=== PATIENT | female | born 1980 | race American Indian/Alaskan Native ===

== ENCOUNTER 2022-07-14 11:05 | Emergency (ER) | payer SELFPAY ==
--- NOTE | 2022-07-14 11:22 | Emergency Department Report ---
ED Neuro Deficit HPI - General Chief Complaint: Neuro Symptoms/Deficit Stated Complaint: LT ARM WEAKNESS Time Seen by Provider: 07/14/22 11:11 Source: patient, EMS Mode of arrival: Stretcher Limitations: No Limitations - History of Present Illness Initial Comments: 41 yo F brought in by EMS with left hand weakness that started around 10 AM while patient was typing as she works at home for the [employer]. Pt denies any past medical history. She says the symptoms started with tingling before the weakness started. No voice changes. No other modifying or associated. - Related Data Allergies/Adverse Reactions: Allergies Allergy/AdvReac Type Severity Reaction Status Date / Time No Known Allergies Allergy Verified 07/14/22 11:13 ED Review of Systems ROS: Stated complaint: LT ARM WEAKNESS Other details as noted in HPI Comment: All other systems reviewed and negative Neurological: weakness, numbness ED Neuro Physical Exam - General Limitations: No Limitations General appearance: alert, in no apparent distress Suspected Stroke: Yes - Head Head exam: Present: normal inspection - Eye Eye exam: Present: normal appearance Pupils: Present: normal accommodation - ENT ENT exam: Present: normal exam, normal orophraynx, mucous membranes moist - Neck Neck exam: Present: normal inspection, full ROM. Absent: tenderness - Respiratory Respiratory exam: Present: normal lung sounds bilaterally. Absent: respiratory distress, accessory muscle use - Cardiovascular Cardiovascular Exam: Present: regular rate, normal rhythm, normal heart sounds - GI/Abdominal GI/Abdominal exam: Present: soft, normal bowel sounds. Absent: distended, tenderness - Extremities Exam Extremities exam: Present: normal inspection, full ROM, normal capillary refill. Absent: tenderness, pedal edema - Back Exam Back exam: Absent: tenderness - Neurological Exam Neurological exam: Present: alert, oriented X3 - NIHSS Assessment Interval: Baseline 1a. Level of Consciousness: alert/keenly responsive 1b. LOC Questions: answers both correctly 1c. LOC Commands: performs tasks correctly 2. Best Gaze: normal 3. Visual: no visual loss 4. Facial Palsy: normal symmetrical movement 5b. Motor Arm Right: no drift 5a. Motor Arm Left: drift 6a. Motor Leg Left: no drift 6b. Motor Leg Right: no drift 7. Limb Ataxia: absent 8. Sensory: normal 9. Best Language: no aphasia 10. Dysarthria: normal 11. Extinction/Inattention: no abnormality Total Score: 1 Stroke Severity: Minor Stroke - Psychiatric Psychiatric exam: Present: normal affect, normal mood - Skin Skin exam: Present: warm, normal color ED Course Vital Signs 07/14/22 07/14/22 07/14/22 11:53 12:53 13:38 Pulse Rate 63 61 62 Respiratory 22 18 18 Rate Blood Pressure 113/68 110/69 122/81 [Left] O2 Sat by Pulse 96 98 98 Oximetry - Lab Data Result diagrams: 07/14/22 11:49 07/14/22 11:49 Lab Results 07/14/22 07/14/22 07/14/22 Range/Units 11:49 11:49 11:49 WBC 5.6 (4.5-11.0) K/mm3 RBC 4.36 (3.65-5.03) M/mm3 Hgb 13.8 (10.1-14.3) gm/dl Hct 40.4 (30.3-42.9) % MCV 93 (79-97) fl MCH 32 (28-32) pg MCHC 34 (30-34) % RDW 13.8 (13.2-15.2) % Plt Count 268 (140-440) K/mm3 Lymph % (Auto) 44.4 H (13.4-35.0) % Barton % (Auto) 4.8 (0.0-7.3) % Eos % (Auto) 3.6 (0.0-4.3) % Baso % (Auto) 0.4 (0.0-1.8) % Lymph # (Auto) 2.5 (1.2-5.4) K/mm3 Barton # (Auto) 0.3 (0.0-0.8) K/mm3 Eos # (Auto) 0.2 (0.0-0.4) K/mm3 Baso # (Auto) 0.0 (0.0-0.1) K/mm3 Seg Neutrophils % 46.8 (40.0-70.0) % Seg Neutrophils # 2.6 (1.8-7.7) K/mm3 PT 13.6 (12.2-14.9) Sec. INR 0.94 (0.87-1.13) APTT 27.8 (24.2-36.6) Sec. Thrombin Time 17.1 (15.1-19.6) Sec. Sodium 136 L (137-145) mmol/L Potassium 4.0 (3.6-5.0) mmol/L Chloride 105.8 (98-107) mmol/L Carbon Dioxide 22 (22-30) mmol/L Anion Gap 12 mmol/L BUN 8 (7-17) mg/dL Creatinine 0.8 (0.6-1.2) mg/dL Estimated GFR > 60 ml/min BUN/Creatinine Ratio 10 % Glucose 82 (65-100) mg/dL Calcium 8.9 (8.4-10.2) mg/dL Total Bilirubin 0.40 (0.1-1.2) mg/dL AST 14 (5-40) units/L ALT 11 (7-56) units/L Alkaline Phosphatase 49 (35-129) units/L Total Creatine Kinase 104 (30-135) units/L CK-MB (CK-2) 1.3 (0.0-4.0) ng/mL CK-MB (CK-2) Rel Index 1.2 (0-4) Troponin T < 0.010 (0.00-0.029) ng/mL Total Protein 6.2 L (6.3-8.2) g/dL Albumin 4.0 (3.9-5) g/dL Albumin/Globulin Ratio 1.8 % Urine Color (Yellow) Urine Turbidity (Clear) Specific [place] (Man) (1.003-1.030) Ur Protein (Man) (Negative) mg/dL Ur Ketones (Man) (Negative) Urine Bilirubin (Man) (Negative) Urine WBC (Auto) (0.0-6.0) /HPF Urine RBC (Auto) (0.0-6.0) /HPF U Epithel Cells (Auto) (0-13.0) /HPF Urine RBC (Manual) (Negative) Plasma/Serum Alcohol (0-0.07) % 07/14/22 07/14/22 Range/Units 11:49 13:03 WBC (4.5-11.0) K/mm3 RBC (3.65-5.03) M/mm3 Hgb (10.1-14.3) gm/dl Hct (30.3-42.9) % MCV (79-97) fl MCH (28-32) pg MCHC (30-34) % RDW (13.2-15.2) % Plt Count (140-440) K/mm3 Lymph % (Auto) (13.4-35.0) % Barton % (Auto) (0.0-7.3) % Eos % (Auto) (0.0-4.3) % Baso % (Auto) (0.0-1.8) % Lymph # (Auto) (1.2-5.4) K/mm3 Barton # (Auto) (0.0-0.8) K/mm3 Eos # (Auto) (0.0-0.4) K/mm3 Baso # (Auto) (0.0-0.1) K/mm3 Seg Neutrophils % (40.0-70.0) % Seg Neutrophils # (1.8-7.7) K/mm3 PT (12.2-14.9) Sec. INR (0.87-1.13) APTT (24.2-36.6) Sec. Thrombin Time (15.1-19.6) Sec. Sodium (137-145) mmol/L Potassium (3.6-5.0) mmol/L Chloride (98-107) mmol/L Carbon Dioxide (22-30) mmol/L Anion Gap mmol/L BUN (7-17) mg/dL Creatinine (0.6-1.2) mg/dL Estimated GFR ml/min BUN/Creatinine Ratio % Glucose (65-100) mg/dL Calcium (8.4-10.2) mg/dL Total Bilirubin (0.1-1.2) mg/dL AST (5-40) units/L ALT (7-56) units/L Alkaline Phosphatase (35-129) units/L Total Creatine Kinase (30-135) units/L CK-MB (CK-2) (0.0-4.0) ng/mL CK-MB (CK-2) Rel Index (0-4) Troponin T (0.00-0.029) ng/mL Total Protein (6.3-8.2) g/dL Albumin (3.9-5) g/dL Albumin/Globulin Ratio % Urine Color Yellow (Yellow) Urine Turbidity Clear (Clear) Specific [place] (Man) 1.010 (1.003-1.030) Ur Protein (Man) Negative (Negative) mg/dL Ur Ketones (Man) Negative (Negative) Urine Bilirubin (Man) Negative (Negative) Urine WBC (Auto) < 1.0 (0.0-6.0) /HPF Urine RBC (Auto) 2.0 (0.0-6.0) /HPF U Epithel Cells (Auto) < 1.0 (0-13.0) /HPF Urine RBC (Manual) Negative (Negative) Plasma/Serum Alcohol < 0.01 (0-0.07) % - EKG Data -: EKG Interpreted by Me EKG shows normal: sinus rhythm Rate: bradycardia Interpretation: no acute changes 07/14/22 13:56 Noted with normal sinus bradycardia at a rate of 57 bpm, with no other ST elev ation or depression in this otherwise normal ECG. - Medical Decision Making here with possible stroke with left hand weakness and tingling -- unsure type of stroke whether ischemic or hemorrhagic stroke so will go ahead and order CT head and CBC, CMP, UA for any infectious process or electrolytes abnormality as the culprit-- Labs reviewed and noted to be unremarkable -- CT head and CTA neck and brain with no acute findings -- I called and spoke with neurologist who suggested admitting patient for full neurology workup -- I discussed this with the patient but she says she did not have any more excuse days to use at work and because of that she is going to have to sign out AGAINST MEDICAL ADVICE. I passuaded patient to stay but she insisted. She however promised to return to ED if symptoms recur or worsen -- Critical care attestation.: If time is entered above; I have spent that time in minutes in the direct care of this critically ill patient, excluding procedure time. ED Disposition Clinical Impression: Left hand weakness Stroke Qualifiers: CVA mechanism: unspecified Qualified Code(s): I63.9 - Cerebral infarction, unspecified Disposition: 07 LEFT AGAINST MEDICAL ADVICE Is pt being admited?: No Does the pt Need Aspirin: No Condition: Stable Instructions: Eating Plan After Stroke, Supporting Someone After a Stroke, Physical Therapy After a Stroke Additional Instructions: Even though you are signing out AGAINST MEDICAL ADVICE to you encouraged to return to emergency room if your symptoms recur or worsen as you would be reevaluated and treated appropriately Forms: AMA Form Time of Disposition: 13:33
--- NOTE | 2022-07-14 11:40 | Cat Scan Report ---
CT head/brain wo con INDICATION: Stroke symptoms. TECHNIQUE: All CT scans at this location are performed using CT dose reduction for ALARA by means of automated e xposure control. COMPARISON: None available. FINDINGS: There is no evidence of hemorrhage, hydrocephalus, brain edema, or mass effect/mass lesion. There is overall normal brain formation and brain volume for the patient's age. Ventricular and cisternal/sulc al size is normal for age. The included paranasal sinuses and mastoid air cells are clear. The orbits appear unremarkable. IMPRESSION: 1. No acute findings. Findings discussed with Dr. Mensah at 10:36 AM central time. Signer Name: Tien Erwin MD Signed: 07/14/2022 11:36 AM Workstation Name: [employer]
--- NOTE | 2022-07-14 11:44 | Consultation ---
History of Present Illness - Reason for Consult Consult date: 07/14/22 - History of Present Illness [facility] Consult Note # Demographics Consult Type: Acute Stroke Level 1 (0-4.5 hrs) Patient Location: Emergency Room First Name: Scarlett Kyle Last Name: Matthew Date of : 1980 Age: 41 Gender: Female Facility: [facility] Time of Initial Page ( Time): 07/14/2022, 11:20 Time of Return Call (Eastern Time): 07/14/2022, 11:31 # HPI Handedness: Right History: 41yo woman who had episode of tingling in her hands as well as chest pressure and some mild confusion. She has left arm numbness and tingling. Duration: improving Associated Symptoms: no headache no vision changes # Scores Time of exam and NIHSS ( Time): 07/14/2022, 11:35 Level of Consciousness 1a: [0] = Alert; keenly responsive LOC Questions 1b: [0] = Answers both questions correctly LOC Commands 1c: [0] = Performs both tasks correctly Best Gaze 2: [0] = Normal Visual 3: [0] = No visual loss Facial Palsy 4: [0] = Normal symmetrical movements Motor Arm Left 5a: [0] = No drift Motor Arm Right 5b: [0] = No drift Motor Leg Left 6a: [0] = No drift Motor Leg Right 6b: [0] = No drift Limb Ataxia 7: [0] = Absent Sensory 8: [0] = Normal Best Language 9: [0] = No aphasia Dysarthria 10: [0] = Normal Extinction and Inattention 11: [0] = No abnormality NIHSS Total: 0 # Exam Vitals: vital signs reviewed # PMH-FH-SH Past Medical History: denies Social History: smoker non-drinker Medications: progesterone only OCP # Demographics First Name: Scarlett Kyle Last Name: Matthew Facility: [facility] Medications and Allergies Allergies Allergy/AdvReac Type Severity Reaction Status Date / Time No Known Allergies Allergy Verified 07/14/22 11:13
--- NOTE | 2022-07-14 11:47 | Cat Scan Report ---
CTA HEAD AND NECK WITH CONTRAST HISTORY: Stroke symptoms COMPARISON: None. TECHNIQUE: All CT scans at this location are performed using CT dose reduction for ALARA by means of automated exposure control.. 3-D/MIP reformats postprocessed. Percentage stenosis is determined by d irect quantitative measurements of diseased internal carotid artery diameter compared with normal dis bob internal carotid artery reference segments or by criteria similar to NASCET where applicable. CONTRAST: 100 ml of Omnipaque 350 FINDINGS: CT HEAD: BRAIN / INTRACRANIAL CONTENTS: No acute hemorrhage, mass effect, midline shift, or hydrocephalus. No appreciable acute large territorial or lacunar infarct. ORBITS: No significant abnormality of visualized orbits. SINUSES / MASTOIDS: No significant abnormality of visualized sinuses and mastoid air cells. CTA HEAD: Intracranial vertebral arteries: No significant abnormality. Basilar artery: No significant abnormality. Posterior cerebral arteries: Developmental origin of bilateral posterior cerebral arteries is n oted. Intracranial internal carotid arteries: No significant abnormality. Anterior cerebral arteries: No significant abnormality. Middle cerebral arteries: No significant abnormality. Dural venous sinuses:Not optimally opacified. No significant abnormality. CTA NECK: Aortic arch: No significant abnormality. Cervical vertebral arteries: No significant abnormality. Common carotid arteries: No significant abnormality. Cervical internal carotid arteries: No significant abnormality. Additional findings: None. IMPRESSION: 1. No significant abnormality. Signer Name: Tien Erwin MD Signed: 07/14/2022 11:43 AM Workstation Name: [employer]
[2022-07-14 12:02] LABS: Basophils % (Auto) 0.4 % (0.0-1.8); Eosinophils # (Auto) 0.2 K/mm3 (0.0-0.4); Eosinophils % (Auto) 3.6 % (0.0-4.3); Hematocrit 40.4 % (30.3-42.9); Hemoglobin 13.8 gm/dl (10.1-14.3); Lymphocytes # (Auto) 2.5 K/mm3 (1.2-5.4); Lymphocytes % (Auto) 44.4 % (13.4-35.0); Mean Corpuscular HGB Conc 34 % (30-34); Mean Corpuscular Volume 93 fl (79-97); Monocytes # (Auto) 0.3 K/mm3 (0.0-0.8); Monocytes % (Auto) 4.8 % (0.0-7.3); Platelet Count 268 K/mm3 (140-440); Red Blood Count 4.36 M/mm3 (3.65-5.03); Red Cell Distribution Width 13.8 % (13.2-15.2)
[2022-07-14 12:10] LABS: INR 0.94 (0.87-1.13); Partial Thromboplastin Time 27.8 Sec. (24.2-36.6); Thrombin Time 17.1 Sec. (15.1-19.6)
[2022-07-14 12:21] LABS: Creatine Kinase MB 1.3 ng/mL (0.0-4.0)
[2022-07-14 12:22] LABS: Alanine Aminotransferase 11 units/L (7-56); BUN/Creatinine Ratio 10; Blood Urea Nitrogen 8 mg/dL (7-17); Calcium 8.9 mg/dL (8.4-10.2); Hemolysis Index 21
[2022-07-14 13:39] VITALS: BP 122/81
[2022-07-14 13:50] LABS: WBC,Urine < 1.0 /HPF (0.0-6.0)
[2022-07-14 13:51] LABS: Color,Urine Yellow (Yellow)
[2022-07-14 14:26] LABS: Amphetamine Screen,Urine Negative; Benzodiazepines Screen,Urine Negative; Cocaine Screen,Urine Negative; Methadone Screen,Urine Negative; Opiate Screen,Urine Negative
[2022-07-14 14:48] LABS: Cannabinoid Screen,Urine Positive
--- NOTE | 2022-07-15 12:24 | Electrocardiograph Report ---
[facility] Test Date: 2022-07-14 Test Time: 13:49:55 Pat Name: KENISHA WATSON Department: Room: Gender: F [employer] Operator: TV : 1980 Requested By: TOMI ALFARO Order Number: [id number] Reading MD: Luz Ahn Measurements Intervals [place] Rate: 57 P: 30 MD: 142 QRS: 85 QRSD: 82 T: 62 QT: 431 QTc: 419 Interpretive Statements Sinus bradycardia No previous ECG available for comparison Electronically Signed On 07-15-2022 12:23:43 EDT by Luz Ahn
== END 2022-07-14 14:02 | disposition left against medical advice (07) ==
LOC: ED 11:05
DX: R53.1 Weakness (principal); I63.9 Cerebral infarction, unspecified; Z79.899 Other long term (current) drug therapy
CPT/HCPCS: 36415; 70450; 70496; 70498; 80053; 80307; 81001; 82550; 82553; 84484; 85025; 85610; 85670; 85730; 93005; 99284; Q9967; 80320; G0480